=== PATIENT | female | born 1985 | race Caucasian/White ===

== ENCOUNTER 2016-04-03 15:07 | Emergency (ER) | payer BC, OTHER ==
[2016-04-03 15:23] VITALS: BP 116/62; PULSE 71; RESP 20; TEMP 98.2
--- NOTE | 2016-04-03 15:32 | ED ---
General Adult HPI - General Chief complaint: Needlestick/Exposure Stated complaint: exposure Time Seen by Provider: 04/03/16 15:25 Source: patient, RN notes reviewed Mode of arrival: ambulatory Limitations: no limitations - History of Present Illness Initial comments: This is a 30-year-old female who presents with exposure to blood in the OR today. Patient states a patient's blood covered her left thumb which has a small cut on it. Patient does not have a hepatitis B vaccination. Patient has a sample of the source patient's blood. Patient denies any recent fever, chills , shortness breath, chest pain, abdominal pain, nausea/vomiting/diarrhea, back pain, numbness, tingling, hematuria, headache, or visual changes, or any other complaints. - Related Data Home Medications Medication Instructions Recorded Confirmed buPROPion [Wellbutrin] 1 tab PO DAILY 04/03/16 04/03/16 busPIRone HCl [Buspar] 1 tab PO DAILY 04/03/16 04/03/16 Allergies Allergy/AdvReac Type Severity Reaction Status Date / Time latex Allergy Rash/Hives Verified 04/03/16 15:15 sulfamethoxazole Allergy Rash/Hives Verified 04/03/16 15:15 [From Bactrim] trimethoprim [From Bactrim] Allergy Rash/Hives Verified 04/03/16 15:15 Review of Systems ROS Statement: Those systems with pertinent positive or pertinent negative responses have been documented in the HPI. ROS Other: All systems not noted in ROS Statement are negative. Past Medical History Past Medical History: No Reported History History of Any Multi-Drug Resistant Organisms: None Reported Past Surgical History: No Surgical Hx Reported Past Psychological History: Depression Smoking Status: Never smoker Past Alcohol Use History: None Reported Past Drug Use History: None Reported General Exam - General Exam Comments Initial Comments: General: The patient is awake and alert, in no distress, and does not appear acutely ill. Neck: The neck is supple, there is no tenderness or JVD. Cardiovascular: There is a regular rate and rhythm. No murmur, rub or gallop is appreciated. Respiratory: Lungs are clear to auscultation, respirations are non-labored, breath sounds are equal. No wheezes, stridor, rales, or rhonchi. Musculoskeletal: Full range of motion, strength 5/5 and Sensation intact. Radial pulses plus bilaterally. Neurological: A&O x 3. CN II-XII intact, There are no obvious motor or sensory deficits. Coordination appears grossly intact. Speech is normal. Skin: There is a small abrasion to the left thumb near the nail. Skin is warm and dry and no rashes or lesions are noted. Psychiatric: Normal mood and affect. Limitations: no limitations Course Vital Signs 04/03/16 15:15 Temperature 98.2 F Pulse Rate 71 Respiratory 20 Rate Blood Pressure 116/62 O2 Sat by Pulse 98 Oximetry Medical Decision Making - Medical Decision Making Patient was exposed to blood in the OR. Physical exam is within normal limits. The source patient's blood is collected and results are pending. Patient's blood is drawn. Discussed the patient needs to follow-up with employee health. I discussed that patient will be called with the results of the rapid HIV. Discussed that patient should follow up with PCP in one to 2 days or return to the [facility] for any worsening symptoms or for any further concerns. Patient was receptive to this plan and patient will be discharged home. Disposition Clinical Impression: Exposure to blood Disposition: HOME SELF-CARE Condition: Good Instructions: Postexposure Prophylaxis (ED) Additional Instructions: Please follow-up with employee health. Please follow-up with family doctor in the next 2 days of symptoms have not improved. Please return to emergency room if the symptoms increase or worsen or for any other concerns. Referrals: Nonstaff,Physician [Primary Care Provider] - 1-2 days Time of Disposition: 15:45
== END 2016-04-03 15:50 | disposition home or self-care (01) ==
LOC: EC 15:07
DX: Z77.21 Contact with and (suspected) exposure to potentially hazardous body fluids (principal); S60.312A Abrasion of left thumb, initial encounter; F32.9 Major depressive disorder, single episode, unspecified; Z91.040 Latex allergy status; Z88.2 Allergy status to sulfonamides; Z79.899 Other long term (current) drug therapy; X58.XXXA Exposure to other specified factors, initial encounter
CPT/HCPCS: 99282